=== PATIENT | male | born 1990 | race Caucasian/White ===

== ENCOUNTER 2018-08-07 10:06 | Emergency (ER) | payer SELFPAY ==
[2018-08-07 10:31] VITALS: BP 124/77
[2018-08-07] MEDS ORDERED: AZITHROMYCIN 250 MG TABLET PO ONE (11:04)
[2018-08-07] MEDS ORDERED: LIDOCAINE 1% INJ-PF (10 MG/ML) 30 ML SDV INJ ONE (11:04)
[2018-08-07] MEDS ORDERED: CEFTRIAXONE INJ 250 MG VIAL IM ONE (11:04)
--- NOTE | 2018-08-07 11:10 | ER Document Report ---
ED GI/ - General Chief Complaint: Penile Discharge Stated Complaint: PENILE DISCHARGE/IRRITATION Time Seen by Provider: 08/07/18 10:53 Mode of Arrival: Ambulatory Information source: Patient Notes: 28-year-old male presents to ED for complaint of burning and discomfort with urination. States he also has a white discharge from his penis. Patient is alert oriented respirations regular and unlabored speaking in full sentences and walks with a even steady gait. Patient states he has no other complaints at this time. TRAVEL OUTSIDE OF THE [place] IN LAST 30 DAYS: No - HPI Patient complains to provider of: Other - Pain with urination and white penile discharge Onset: Other Timing/Duration: Sudden - Couple days Quality of pain: Burning Severity at maximum: Moderate Severity in ED: Moderate Pain Level: 3 Location: Other - Penile discharge burning with urination Sexual history: New partner Associated symptoms: Penile discharge, Other - Burning with urination Exacerbated by: Other - Urination Relieved by: Denies Similar symptoms previously: No Recently seen / treated by doctor: No - Related Data Allergies/Adverse Reactions: Penicillins Allergy (Verified 08/07/18 10:11) Past Medical History - General Information source: Patient - Social History Smoking Status: Current Every Day Smoker Cigarette use (# per day): Yes - Half pack a day Chew tobacco use (# tins/day): No Smoking Education Provided: Yes - 4 minutes Frequency of alcohol use: Social Drug Abuse: Marijuana Lives with: Other - Aunt Family History: Reviewed & Not Pertinent Patient has suicidal ideation: No Patient has homicidal ideation: No - Past Medical History Cardiac Medical History: Reports: None Pulmonary Medical History: Reports: None EENT Medical History: Reports: None Neurological Medical History: Reports: None Endocrine Medical History: Reports: None Renal/ Medical History: Reports: None Malignancy Medical History: Reports None GI Medical History: Reports: None Musculoskeletal Medical History: Reports Other - Accidental amputation of second finger Skin Medical History: Reports None Psychiatric Medical History: Reports: None Traumatic Medical History: Reports: None Infectious Medical History: Reports: None Past Surgical History: Reports: Hx Orthopedic Surgery - amputation 2nd finger - Immunizations Immunizations up to date: Yes Review of Systems - Review of Systems Constitutional: No symptoms reported EENT: No symptoms reported Cardiovascular: No symptoms reported Respiratory: No symptoms reported Gastrointestinal: No symptoms reported Genitourinary: Burning Male Genitourinary: Penile discharge Musculoskeletal: No symptoms reported Skin: No symptoms reported Hematologic/Lymphatic: No symptoms reported Neurological/Psychological: No symptoms reported -: Yes All other systems reviewed and negative Physical Exam - Vital signs Vitals: Temp Pulse Resp BP Pulse Ox 97.8 F 59 L 18 124/77 98 08/07/18 10:08/07/18 10:08/07/18 10:08/07/18 10:08/07/18 10:28 Interpretation: Normal - General General appearance: Appears well, Alert - HEENT Head: Normocephalic, Atraumatic Eyes: Normal Pupils: PERRL - Respiratory Respiratory status: No respiratory distress Chest status: Nontender Breath sounds: Normal Chest palpation: Normal - Cardiovascular Rhythm: Regular Heart sounds: Normal auscultation Murmur: No - Abdominal Inspection: Normal Distension: No distension Bowel sounds: Normal Tenderness: Nontender Organomegaly: No organomegaly - Genitourinary Inspection: Penile discharge - white Tenderness: Epididymis tender Cremasteric reflex: Normal Scrotum: Normal - Back Back: Normal, Nontender - Extremities General upper extremity: Normal inspection, Nontender, Normal color, Normal ROM, Normal temperature General lower extremity: Normal inspection, Nontender, Normal color, Normal ROM, Normal temperature, Normal weight bearing. No: Konstantin's sign - Neurological Neuro grossly intact: Yes Cognition: Normal Orientation: AAOx4 Radha Coma Scale Eye Opening: Spontaneous Radha Coma Scale Verbal: Oriented Radha Coma Scale Motor: Obeys Commands Radha Coma Scale Total: 15 Speech: Normal Motor strength normal: LUE, RUE, LLE, RLE Sensory: Normal - Psychological Associated symptoms: Normal affect, Normal mood - Skin Skin Temperature: Warm Skin Moisture: Dry Skin Color: Normal Course - Re-evaluation Re-evalutation: 08/07/18 11:41 Patient was treated with Rocephin and azithromycin with no reactions. Patient states he had a penile discharge. There is no been a UTI in the urine I will send for culture. The GC and chlamydia will not be ready for 2 hours he has been treated and he has been instructed to call in 2 hours for the results. - Vital Signs Vital signs: Temp Pulse Resp BP Pulse Ox 97.8 F 59 L 18 124/77 98 08/07/18 10:08/07/18 10:08/07/18 10:19 10:28 08/07/18 10:28 - Laboratory Laboratory results interpreted by me: 08/07/18 10:30 Ur Leukocyte Esterase SMALL H Discharge - Discharge Clinical Impression: Urethritis Condition: Stable Disposition: HOME, SELF-CARE Instructions: Family Physicians / Practices Additional Instructions: Urethritis You have urethritis, an infection of the urethra. The usual symptoms are pain on urination and discharge. The infection is often caused by gonorrhea or chlamydia. Treatment is antibiotics. In addition, any sexual contacts should be evaluated by a physician as soon as possible. As this infection can be transmitted sexually, refrain from sexual activity until the infection is confirmed as healed by your physician. If gonorrhea or chlamydia is found on culture, the health department must be notified. Call the doctor at once if you develop difficulty passing your urine, high fever, rash, joint swelling, or other new symptoms. CEPHALOSPORINS: An antibiotic of the cephalosporin class has been prescribed. This type of antibiotic covers a wide variety of infections, including those of the skin, l ungs, middle ear, and urinary tract. This antibiotic is somewhat similar to the penicillin family. In rare cases, a person who is allergic to penicillin will also be allergic to this medication. If you have had a severe allergic reaction to penicillin, and have not taken this antibiotic since that time, notify your doctor. Antibiotics which cover many germs ("broad spectrum" antibiotics) are more likely to cause diarrhea or "yeast" infections. Women prone to vaginal yeast problems may suffer an attack after taking this antibiotic. In infants, oral thrush (white spots "stuck" on the cheek) or yeast diaper rash may result. See your doctor if these problems occur. Call the doctor at once if you develop hives, itching, shortness of breath, or lightheadedness. AZITHROMYCIN: Azithromycin (Zithromax) is a broad spectrum antibiotic in the same class as erythromycin. It can treat a variety of bacterial infections, but is most frequently used for respiratory infections. Azithromycin is extremely long-lasting. It accumulates in body tissues and continues to kill bacteria for many days. In order to improve absorption, Azithromycin should be taken at least one hour before or two hours after a meal. It does not have the same strong tendency to upset the stomach as erythromycin and is usually very well tolerated. Patients who have had a rash or other true allergic reactions to erythromycin should not take this medication. Call if you develop gastrointestinal distress, severe diarrhea, rash, hives, itching, or shortness of breath. Please call [phone] in 2 hours to get the results of your GC and chlamydia. Please refrain from having any unprotected sex with anybody until you get the results results and then do not have any unprotected sex for at least 10 days after treatment. Please inform your partner if your test results come back positive. FOLLOW-UP CARE: If you have been referred to a physician for follow-up care, call the physici ans office for an appointment as you were instructed or within the next two days. If you experience worsening or a significant change in your symptoms, notify the physician immediately or return to the Emergency Department at any time for re-evaluation. Forms: Smoking Cessation Education, Return to Work
[2018-08-07 11:33] LABS: APPEARANCE,URINE CLEAR; BILIRUBIN,URINE NEGATIVE (NEGATIVE); COLOR,URINE YELLOW; GLUCOSE, URINE NEGATIVE (NEGATIVE); KETONES,URINE NEGATIVE (NEGATIVE); LEUKOCYTE ESTERASE,URINE SMALL (NEGATIVE); NITRITE,URINE NEGATIVE (NEGATIVE); PROTEIN,URINE NEGATIVE (NEGATIVE); URINE SPECIFIC GRAVITY 1.021; UROBILINOGEN,URINE NEGATIVE mg/dL (<2.0)
[2018-08-07 13:03] LABS: CHLAM PCR NOT DETECTED (NOT DETECT); GON PCR DETECTED (NOT DETECT)
== END 2018-08-07 12:05 | disposition home or self-care (01) ==
LOC: ER 10:06
DX: N34.2 Other urethritis (principal); R36.9 Urethral discharge, unspecified; R30.9 Painful micturition, unspecified; F17.210 Nicotine dependence, cigarettes, uncomplicated
CPT/HCPCS: 99406; 99283; 87086; 81001; 87491; 87591; J3490; J0696